=== PATIENT | male | born 2000 | race Hispanic/Latino ===

== ENCOUNTER 2024-02-06 05:30 | Emergency (ER) | payer SELFPAY ==
[2024-02-06 05:40] VITALS: BP 167/85
[2024-02-06 06:02] LABS: % Basophils 0.4 % (0-2); % Eosinophils 0.6 % (0-6); % Immature Granulocytes 0.6 % (0-0.5); % Monocytes 4.9 % (1.7-9.3); % Neutrophils 79.5 % (42.2-75.2); Absolute Basophils 0.1 10^3/uL (0-0.2); Absolute Eosinophils 0.1 10^3/uL (0-0.7); Absolute Immature Granulocytes 0.1 10^3/uL (0-0.05); Absolute Lymphocytes 1.7 10^3/uL (1.2-3.4); Absolute Monocytes 0.6 10^3/uL (0.1-0.6); Absolute Neutrophils 9.5 10^3/uL (1.4-6.5); Hematocrit 45.2 % (39.0-52.0); Hemoglobin 15.1 g/dL (13.0-18.0); Mean Corp Hgb Conc. 33.4 g/dL (33.0-37.0); Mean Corpuscular Hgb 28.9 pg (27.0-31.0); Mean Corpuscular Volume 86.4 fL (80.0-94.0); Nucleated Red Blood Cells % 0 % (-); Platelet Count 192 10^3/uL (130-400); Red Blood Cell Count 5.23 10^6/uL (4.70-6.10); Red Cell Dist. Width 12.2 % (11.5-14.5)
[2024-02-06 06:25] LABS: ALT (SGPT) 44 U/L (0-50); AST (SGOT) 32 U/L (17-59); Albumin 4.7 g/dl (3.5-5.0); Alkaline Phosphatase 52 U/L (38-126); Blood Urea Nitrogen 16 mg/dl (9-20); Calcium 9.6 mg/dl (8.4-10.2); Carbon Dioxide 28 mmol/L (22-30); Chloride 101 mmol/L (98-107); Glucose 124 mg/dl (70-99); Lipase 555 U/L (23-300); Potassium 4.1 mmol/L (3.5-5.1); Sodium 135 mmol/L (135-145); Total Bilirubin 0.4 mg/dl (0.2-1.3); Total Protein 7.6 g/dl (6.3-8.2); eGFR > 60.00
--- NOTE | 2024-02-06 07:25 | ED.GENMED ---
History of Present Illness
General
Chief Complaint: Abdominal Pain
Time Seen by Provider: 02/06/24 07:11
Travel History
Have you had any contact with someone who has COVID-19?: No
Do you have any symptoms of coronavirus? Fever > 100 degrees, chills, cough, shortness of breath, sore throat, loss of taste or smell, muscle aches, or headache?: No
History of Present Illness
History of Present Illness:
23-year-old otherwise healthy male presents to the emergency department for evaluation of abrupt onset of left upper quadrant/epigastric pain beginning last night, associated with vomiting x 1. No hematemesis. Denies any fevers or chills. Denies
any diarrhea or lower urinary tract voiding symptoms. Denies any history of abdominal surgeries. No ill contacts at home. Denies alcohol use, tobacco/nicotine use, or frequent NSAID use.
Past History
Social History
Tobacco: Non-smoker
Alcohol: None
Drug: None
Review of Systems
Review of Systems
Allergies reviewed?: Yes
All Other Systems: ROS reviewed and negative except as documented in HPI and ROS
Phy Exam
Physical Exam
Physical Exam:
GEN: Well appearing, NAD, WDWN
HEENT: Oral mucosa moist, no scleral icterus
Cardiac: Regular rate and rhythm, no murmurs
Lung: No respiratory distress, no tachypnea
Abdomen: Soft, minimal epigastric/left upper quadrant tenderness, no masses or splenomegaly
MSK: No gross deformity or injuries
Skin: Good color, no pallor or jaundice, no rashes
Neuro: AO x3, moves all extremities freely
Psych: Calm, cooperative
Course
Orders/Labs/Results
Orders:
Orders
02/06/24 05:56
Complete Blood Count/With Diff Urgent
Comprehensive Metabolic Panel Urgent
Lipase Urgent
02/06/24 06:26
Urinalysis Reflex To Culture Urgent
Date Specimen was Collected: 02/06/24
Time Specimen was Collected: 05:43
02/06/24 07:24
Sucralfate Suspension [Carafate Suspension] 1 gm PO NOW STA
Abnormal Lab Results
02/06/24
05:56
WBC 12.0 H 10^3/uL
(4.8-10.8)
Abs Immat Gran (auto) 0.1 H 10^3/uL
(0-0.05)
Absolute Neuts (auto) 9.5 H 10^3/uL
(1.4-6.5)
Immature Gran % 0.6 H %
(0-0.5)
Neutrophils % 79.5 H %
(42.2-75.2)
Lymphocytes % 14.0 L %
(20.5-51.1)
Glucose 124 H mg/dl
(70-99)
Lipase 555 H U/L
(23-300)
02/06/24 05:56
02/06/24 05:56
Vital Signs
Initial and Last Documented VS:
Initial Vital Signs
Temp Pulse Resp BP Pulse Ox
97.8 F 59 16 167/85 100
02/06/24 05:40 02/06/24 05:40 02/06/24 05:40 02/06/24 05:40 02/06/24 05:40
Last Documented Vital Signs
Temp Pulse Resp BP Pulse Ox
97.8 F 59 16 167/85 100
02/06/24 05:40 02/06/24 05:40 02/06/24 05:40 02/06/24 05:40 02/06/24 05:40
MDM/Problems Addressed
MDM/Problems Addressed:
Mild lipase elevation noted, likely due to vomiting and not indicative of pancreatitis, patient has no risk factors for pancreatitis. He is not on acute abdomen on exam, no indication for imaging. Discussed supportive care, did improve with
Carafate, may represent gastritis
*Critical Care Note
Total Time (30-74mins, 75-104mins- exclusive of procedures): Not Applicable
ED Attending Note
-
Portions of this chart may have been created with voice recognition software.� Occasional wrong word or��sound alike� substitutions may have occurred due to the inherent limitations of voice recognition software.
Discharge Plan
Departure
Patient Disposition: Home (Routine Discharge)
Date of Disposition: 02/06/24
Time of Disposition: 08:19
Patient with high blood pressure during this ER visit?: No
Discharge Problem:
Gastritis
Instructions: Clear Liquid Diet, Gastritis (DC)
Prescriptions:
New
sucralfate [Carafate] 1 gram tablet
1 g PO AC Qty: 30 0RF
ondansetron 4 mg tablet,disintegrating
4 mg PO TIDPRN PRN (Reason: nausea/vomiting) Qty: 10 0RF
No Action
Excedrin Migraine 1 TABLET tablet
1 tab PO Q6 PRN (Reason: lopez)
Referrals:
NONE,* [Family Provider] -
Activity Restrictions/Additional Instructions:
Clear liquids only for the next 48 hours
If pain gets worse, return to the ER for re-evaluation
Interventions
Interventions:
*Risk Screen - Suicide Last Done: 02/06/24 05:40
*Neglect/Abuse Screening Last Done: 02/06/24 05:40
*ED COVID-19 Vaccine History Last Done: 02/06/24 05:40
*Nursing Disposition Last Done: 02/06/24 08:25
YV-Rgcysb-Ycrujluvhi Assessment Last Done: 02/06/24 07:40
Discharge Date and Time
Discharge Date/Time: 02/06/24 08:20
Print Language: YAKUT
[2024-02-06] MEDS: CARAFATE SUSPENSION 1 GM PO (07:33)
[2024-02-06 07:51] LABS: Urine Albumin Negative (Neg - Trace); Urine Bilirubin Negative (Negative); Urine Character Clear (Clear); Urine Color Yellow; Urine Glucose Negative (Negative); Urine Ketone Negative (Negative); Urine Leukocyte Negative (Negative); Urine Nitrite Negative (Negative); Urine Occult Blood Negative (Negative); Urine Urobilinogen Negative (Neg - 1+)
== END 2024-02-06 08:20 | disposition home or self-care (01) ==
LOC: EMR 05:30
PROVIDERS: Emergency Medicine; EMERGENCY PHYSICIAN Emergency Medicine
DX: K29.70 Gastritis, unspecified, without bleeding (principal)
CPT/HCPCS: 99283; 80053; 81003; 83690; 85025